=== PATIENT | female | born 1965 | race Two or more races ===

== ENCOUNTER 2018-05-17 20:45 | Inpatient (IN) | payer BC, MEDICARE ==
[~2018-05-17] VITALS: Ht 167.6 cm; Wt 141.1 kg
[2018-05-17] MEDS ORDERED: LORAZEPAM 2MG/ML CPJ IV ONE (21:30)
[2018-05-17 22:08] LABS: CHLORIDE 103 mEq/L (98-107)
[2018-05-17 22:09] LABS: HEMATOCRIT. 32.4 % (36.0-48.0); HEMOGLOBIN. 10.5 g/dL (12.0-16.0); MEAN CORPUSCULAR HEMOGLOBIN 25.1 pg (28.0-32.0); MEAN CORPUSCULAR VOLUME 77.3 fL (81.0-99.0); MEAN PLATELET VOLUME 8.2 fl (7.4-10.4); PLATELET 187 x1000/uL (130-400); RED BLOOD CELL COUNT 4.19 mill/uL (4.2-5.4); RED CELL DISTRIBUTION WIDTH 17.5 % (11.6-14.6)
[2018-05-17] MEDS ORDERED: KETOROLAC 30MG/ML VIAL IV ONE (22:15)
[2018-05-17 22:53] LABS: CLARITY URINE CLEAR (CLEAR); COLOR URINE YELLOW (YELLOW); KETONES URINE NEGATIVE (NEGATIVE); LEUKOCYTE ESTERASE URINE NEGATIVE (NEGATIVE); NITRITE URINE NEGATIVE (NEGATIVE); OCCULT BLOOD URINE 2+ (NEGATIVE); PROTEIN URINE 3+ (NEGATIVE); SPECIFIC GRAVITY URINE 1.026 (1.005-1.030); UROBILINOGEN URINE 0.2 E.U./dL (0.2-1.0)
[2018-05-17] MEDS ORDERED: NITROGLYCERIN OINT 1GM/INCH UDPKT TD ONE (23:00)
[2018-05-17] MEDS ORDERED: AZITHROMYCIN 500 MG in DEXT 5% WATER 250 ML IV ONE (23:00)
[2018-05-17] MEDS ORDERED: FUROSEMIDE 40MG/4ML VIAL IV ONE (23:00)
[2018-05-17] MEDS ORDERED: CEFTRIAXONE 1 G PREMIX 50 ML IV ONE (23:00)
[2018-05-17 23:45] LABS: PLATELET ESTIMATE NORMAL
[2018-05-18] MEDS ORDERED: ONDANSETRON HCL 4MG/2ML INJ IV ONE (00:30)
[2018-05-18] MEDS ORDERED: MORPHINE SULFATE 4 MG/ML CPJ (NOT FOR IM USE) IV ONE (00:30)
[2018-05-18 01:00] VITALS: BP 125/54
[2018-05-18] MEDS ORDERED: LORA2TAB2 MT (01:36)
[2018-05-18] MEDS ORDERED: ALBU18HF2 IH (02:24)
[2018-05-18] MEDS ORDERED: AMLO5TAB88 PO (02:24)
[2018-05-18] MEDS ORDERED: ASPI-1159 PO (02:24)
[2018-05-18] MEDS ORDERED: FERR325T6 PO (02:24)
[2018-05-18] MEDS ORDERED: GLIP10TA10 PO (03:28)
[2018-05-18] MEDS ORDERED: IPRATROPIUM/ALBUTEROL 0.5-3(2.5)MG/3ML NEB INH PRN (03:30)
[2018-05-18] MEDS ORDERED: LEVOFLOXACIN 500MG PREMIX 100 ML IV SCH (03:30)
[2018-05-18] MEDS ORDERED: DEXTROSE 50% WATER 50ML SYRINGE IV PRN (03:45)
[2018-05-18] MEDS: IPRATROPIUM/ALBUTEROL 0.5-3(2.5)MG/3ML NEB HHN SCH ×6 (03:59→23:59)
[2018-05-18] MEDS: ACETAMINOPHEN 325MG TABLET PO PRN ×2 (04:04→09:18)
[2018-05-18] MEDS: SODIUM CHLORIDE 0.9% INJ 3ML FLUSH IVF SCH ×3 (05:29→21:20)
[2018-05-18] MEDS: BLOOD SUGAR DIAGNOSTIC STRIP TEST SCH ×4 (06:35→21:20)
[2018-05-18] MEDS: INSULIN LISPRO 100 UNITS/ML SUBCUT SCH ×4 (06:41→21:22)
[2018-05-18] MEDS: BUDESONIDE 0.5MG/2ML NEB HHN SCH ×2 (08:08→20:15)
[2018-05-18 08:35] VITALS: BP 160/56
[2018-05-18] MEDS: LEVOFLOXACIN 500MG PREMIX 100 ML IV SCH (09:01)
[2018-05-18] MEDS: ASPIRIN 81MG TABLET PO SCH (09:02)
[2018-05-18] MEDS: ENOXAPARIN 40MG/0.4ML SYR SUBCUT SCH ×3 (09:05→21:20)
[2018-05-18] MEDS: AMLODIPINE 5MG TABLET PO SCH (09:12)
[2018-05-18 09:46] LABS: HEMATOCRIT. 27.1 % (36.0-48.0); HEMOGLOBIN. 8.8 g/dL (12.0-16.0); MEAN CORPUSCULAR HEMOGLOBIN 24.9 pg (28.0-32.0); MEAN CORPUSCULAR VOLUME 76.6 fL (81.0-99.0); MEAN PLATELET VOLUME 7.2 fl (7.4-10.4); PLATELET 146 x1000/uL (130-400); RED BLOOD CELL COUNT 3.53 mill/uL (4.2-5.4); RED CELL DISTRIBUTION WIDTH 17.6 % (11.6-14.6)
[2018-05-18] MEDS ORDERED: BUDESONIDE 0.5MG/2ML NEB HHN SCH (11:45)
[2018-05-18] MEDS: AZITHROMYCIN 500 MG TABLET PO SCH (11:50)
[2018-05-18] MEDS: FUROSEMIDE 40MG/4ML VIAL IVP SCH (11:50)
[2018-05-18] MEDS: LORAZEPAM 2MG/ML CPJ IV PRN ×2 (11:51→19:11)
[2018-05-18 12:35] VITALS: BP 101/39
[2018-05-18] MEDS: METHYLPREDNISOLONE SOD SUCC 40 MG/ML VIAL IV SCH ×2 (12:36→21:20)
[2018-05-18 12:46] LABS: BG BASE EXCESS 2.9 mmol/L (-2.0-2.0); BG CARBOXYHEMOGLOBIN 0.9 % (0.5-1.5); BG DEOXYHEMOGLOBIN 8.5 % (0.0-5.0); BG FRACTION INSPIRED OXYGEN 60; BG HCO3 ACT 30.8 mmol/L (22.0-26.0); BG OXYGEN SATURATION 91.4 % (92.0-98.5); BG OXYHEMOGLOBIN 90.6 % (94.0-97.0); BG PCO2 67.7 mmHg (35.0-45.0); BG PH 7.276 (7.350-7.450); BG PO2 62.6 mmHg (75.0-100.0); BG SAMPLE SITE LEFT RADIAL; BG TOTAL HEMOGLOBIN 9.4 g/dL (12.0-18.0); BG VENT MODE MASK - SIMPLE
[2018-05-18] MEDS: MORPHINE SULFATE 4 MG/ML CPJ (NOT FOR IM USE) IV PRN ×3 (13:45→22:04)
[2018-05-18] MEDS ORDERED: LIDOCAINE HCL/PF 1% 2ML VIAL ONE (16:34)
[2018-05-18 16:50] LABS: PLATELET ESTIMATE NORMAL
[2018-05-18 16:53] VITALS: BP 136/55
[2018-05-18 20:34] VITALS: BP 111/49
[2018-05-18] MEDS ORDERED: CEFTRIAXONE 1 G PREMIX 50 ML IV SCH (23:30)
[2018-05-19] VITALS: BP 106/48
[2018-05-19] MEDS: ACETAMINOPHEN 325MG TABLET PO PRN (00:53)
[2018-05-19] MEDS: LORAZEPAM 2MG/ML CPJ IV PRN ×4 (01:31→22:44)
[2018-05-19 04:00] VITALS: BP 123/69
[2018-05-19] MEDS: IPRATROPIUM/ALBUTEROL 0.5-3(2.5)MG/3ML NEB HHN SCH ×5 (04:17→21:57)
[2018-05-19] MEDS: MORPHINE SULFATE 4 MG/ML CPJ (NOT FOR IM USE) IV PRN ×4 (04:45→20:31)
[2018-05-19] MEDS: SODIUM CHLORIDE 0.9% INJ 3ML FLUSH IVF SCH ×3 (05:34→20:48)
[2018-05-19] MEDS: METHYLPREDNISOLONE SOD SUCC 40 MG/ML VIAL IV SCH ×2 (05:34→12:11)
[2018-05-19] MEDS: DIPHENHYDRAMINE 50MG/ML VIAL IV PRN ×2 (05:35→12:11)
[2018-05-19] MEDS: BLOOD SUGAR DIAGNOSTIC STRIP TEST SCH ×4 (06:04→20:48)
[2018-05-19 06:26] LABS: HEMATOCRIT 25.8 % (36.0-48.0); HEMOGLOBIN 8.4 g/dL (12.0-16.0); MEAN CORPUSCULAR VOLUME 77.3 fL (81.0-99.0); PLATELET 146 x1000/uL (130-400); RED BLOOD CELL COUNT 3.34 mill/uL (4.2-5.4); RED CELL DISTRIBUTION WIDTH 17.5 % (11.6-14.6)
[2018-05-19 07:00] LABS: BG BASE EXCESS -0.4 mmol/L (-2.0-2.0); BG CARBOXYHEMOGLOBIN 0.8 % (0.5-1.5); BG DEOXYHEMOGLOBIN 23.8 % (0.0-5.0); BG HCO3 ACT 27.5 mmol/L (22.0-26.0); BG METHEMOGLOBIN 0.3 % (0.0-1.5); BG OXYGEN SATURATION 75.9 % (92.0-98.5); BG OXYHEMOGLOBIN 75.1 % (94.0-97.0); BG PCO2 64.3 mmHg (35.0-45.0); BG PH 7.249 (7.350-7.450); BG PO2 42.1 mmHg (75.0-100.0); BG SAMPLE SITE RIGHT RADIAL; BG TOTAL HEMOGLOBIN 9.2 g/dL (12.0-18.0); BG VENT MODE ROOM AIR
[2018-05-19] MEDS ORDERED: INSULIN REGULAR (HUMULIN R) UD 100 UNITS/ML SYR SUBCUT NR (07:00)
[2018-05-19] MEDS ORDERED: INSULIN LISPRO 100 UNITS/ML SUBCUT NR ×2 (07:00→21:00)
[2018-05-19] MEDS: BUDESONIDE 0.5MG/2ML NEB HHN SCH ×2 (07:59→21:56)
[2018-05-19] MEDS: LEVOFLOXACIN 500MG PREMIX 100 ML IV SCH (08:59)
[2018-05-19] MEDS: AZITHROMYCIN 500 MG TABLET PO SCH (09:00)
[2018-05-19] MEDS: FUROSEMIDE 40MG/4ML VIAL IVP SCH (09:00)
[2018-05-19] MEDS: ASPIRIN 81MG TABLET PO SCH (09:00)
[2018-05-19] MEDS: INSULIN LISPRO 100 UNITS/ML SUBCUT SCH ×4 (09:53→21:00)
[2018-05-19] MEDS ORDERED: INSULIN GLARGINE UD 100 UNITS/ML SYR SUBCUT NR (11:00)
[2018-05-19] MEDS: AMLODIPINE 5MG TABLET PO SCH (13:14)
[2018-05-19] MEDS ORDERED: LIDOCAINE HCL/PF 1% 2ML VIAL ONE (13:59)
[2018-05-19 16:00] VITALS: BP 121/42
[2018-05-19 20:22] VITALS: BP 133/53
[2018-05-19] MEDS ORDERED: INSULIN GLARGINE UD 100 UNITS/ML SYR SUBCUT SCH (22:00)
[2018-05-20] MEDS: DIPHENHYDRAMINE 50MG/ML VIAL IV PRN ×3 (00:06→21:28)
[2018-05-20] MEDS: METHYLPREDNISOLONE SOD SUCC 40 MG/ML VIAL IV SCH ×2 (00:06→13:07)
[2018-05-20] MEDS: IPRATROPIUM/ALBUTEROL 0.5-3(2.5)MG/3ML NEB HHN SCH ×4 (00:18→22:10)
[2018-05-20 00:36] VITALS: BP 130/50
[2018-05-20 04:00] VITALS: BP 132/78
[2018-05-20] MEDS: MORPHINE SULFATE 4 MG/ML CPJ (NOT FOR IM USE) IV PRN ×4 (04:16→20:16)
[2018-05-20] MEDS: BLOOD SUGAR DIAGNOSTIC STRIP TEST SCH ×4 (06:02→20:15)
[2018-05-20] MEDS: SODIUM CHLORIDE 0.9% INJ 3ML FLUSH IVF SCH ×3 (06:02→21:27)
[2018-05-20] MEDS ORDERED: INSULIN LISPRO 100 UNITS/ML SUBCUT ONE (06:30)
[2018-05-20 06:51] LABS: HEMOGLOBIN 8.4 g/dL (12.0-16.0); MEAN CORPUSCULAR HEMOGLOBIN 24.8 pg (28.0-32.0); MEAN CORPUSCULAR VOLUME 77.2 fL (81.0-99.0); PLATELET 189 x1000/uL (130-400); RED BLOOD CELL COUNT 3.37 mill/uL (4.2-5.4); RED CELL DISTRIBUTION WIDTH 17.5 % (11.6-14.6)
[2018-05-20] MEDS: BUDESONIDE 0.5MG/2ML NEB HHN SCH ×2 (07:50→22:06)
[2018-05-20] MEDS: LEVOFLOXACIN 500MG PREMIX 100 ML IV SCH (09:30)
[2018-05-20] MEDS: AZITHROMYCIN 500 MG TABLET PO SCH (09:30)
[2018-05-20] MEDS: AMLODIPINE 5MG TABLET PO SCH (09:30)
[2018-05-20] MEDS ORDERED: LIDOCAINE HCL/PF 1% 2ML VIAL ONE (09:57)
[2018-05-20] MEDS ORDERED: INSULIN GLARGINE UD 100 UNITS/ML SYR SUBCUT SCH ×2 (10:00→22:00)
[2018-05-20] MEDS: FUROSEMIDE 40MG/4ML VIAL IVP SCH (10:22)
[2018-05-20] MEDS: INSULIN GLARGINE UD 100 UNITS/ML SYR SUBCUT SCH ×2 (10:37→21:27)
[2018-05-20 12:00] VITALS: BP 158/56
[2018-05-20 12:35] LABS: BG BASE EXCESS 2.3 mmol/L (-2.0-2.0); BG CARBOXYHEMOGLOBIN 0.3 % (0.5-1.5); BG DEOXYHEMOGLOBIN 4.5 % (0.0-5.0); BG FRACTION INSPIRED OXYGEN 40; BG HCO3 ACT 28.8 mmol/L (22.0-26.0); BG METHEMOGLOBIN 1.3 % (0.0-1.5); BG OXYGEN SATURATION 95.4 % (92.0-98.5); BG OXYHEMOGLOBIN 93.9 % (94.0-97.0); BG PCO2 55.3 mmHg (35.0-45.0); BG PH 7.335 (7.350-7.450); BG PO2 83.8 mmHg (75.0-100.0); BG SAMPLE SITE RIGHT RADIAL; BG TOTAL HEMOGLOBIN 9.8 g/dL (12.0-18.0); BG VENT MODE NASAL CANNULA
[2018-05-20] MEDS: INSULIN LISPRO 100 UNITS/ML SUBCUT SCH ×3 (13:08→21:27)
[2018-05-20] MEDS ORDERED: INSULIN LISPRO 100 UNITS/ML SUBCUT NR ×2 (14:30→17:00)
[2018-05-20 16:00] VITALS: BP 172/61
[2018-05-20 16:34] VITALS: BP 146/59
[2018-05-20] MEDS: LORAZEPAM 2MG/ML CPJ IV PRN (17:14)
[2018-05-20] MEDS ORDERED: INSULIN GLARGINE UD 100 UNITS/ML SYR SUBCUT NR (18:30)
[2018-05-20 20:00] VITALS: BP 168/76
[2018-05-20] MEDS: ENOXAPARIN 40MG/0.4ML SYR SUBCUT SCH (21:25)
[2018-05-21] VITALS: BP 135/58
[2018-05-21] MEDS: MORPHINE SULFATE 4 MG/ML CPJ (NOT FOR IM USE) IV PRN ×4 (00:20→18:38)
[2018-05-21 04:00] VITALS: BP 151/62
[2018-05-21] MEDS: LORAZEPAM 2MG/ML CPJ IV PRN ×3 (04:08→17:43)
[2018-05-21] MEDS: IPRATROPIUM/ALBUTEROL 0.5-3(2.5)MG/3ML NEB HHN SCH ×4 (05:16→16:05)
[2018-05-21] MEDS: SODIUM CHLORIDE 0.9% INJ 3ML FLUSH IVF SCH ×2 (06:13→14:27)
[2018-05-21] MEDS: BLOOD SUGAR DIAGNOSTIC STRIP TEST SCH ×3 (06:24→17:29)
[2018-05-21] MEDS: DIPHENHYDRAMINE 50MG/ML VIAL IV PRN ×2 (06:39→15:26)
[2018-05-21 06:58] LABS: HEMATOCRIT 27.2 % (36.0-48.0); HEMOGLOBIN 8.7 g/dL (12.0-16.0); MEAN CORPUSCULAR HEMOGLOBIN 24.4 pg (28.0-32.0); MEAN CORPUSCULAR VOLUME 75.8 fL (81.0-99.0); PLATELET 222 x1000/uL (130-400); RED BLOOD CELL COUNT 3.58 mill/uL (4.2-5.4); RED CELL DISTRIBUTION WIDTH 17.5 % (11.6-14.6)
[2018-05-21 08:00] VITALS: BP 150/62
[2018-05-21] MEDS: BUDESONIDE 0.5MG/2ML NEB HHN SCH (08:49)
[2018-05-21] MEDS ORDERED: ASPIRIN 81MG TABLET PO SCH (09:00)
[2018-05-21] MEDS ORDERED: METHYLPREDNISOLONE SOD SUCC 40 MG/ML VIAL IV SCH (09:00)
[2018-05-21] MEDS: FUROSEMIDE 40MG/4ML VIAL IVP SCH (09:10)
[2018-05-21] MEDS: LEVOFLOXACIN 500MG PREMIX 100 ML IV SCH (09:11)
[2018-05-21] MEDS: ENOXAPARIN 40MG/0.4ML SYR SUBCUT SCH (09:11)
[2018-05-21] MEDS: AMLODIPINE 5MG TABLET PO SCH (09:12)
[2018-05-21 12:00] VITALS: BP 161/76
[2018-05-21] MEDS: INSULIN LISPRO 100 UNITS/ML SUBCUT SCH ×2 (12:50→17:50)
[2018-05-21] MEDS ORDERED: INSULIN LISPRO 100 UNITS/ML SUBCUT ONE (13:45)
[2018-05-21 16:00] VITALS: BP 147/67
[2018-05-21] MEDS ORDERED: INSULIN LISPRO 100 UNITS/ML SUBCUT NR (17:30)
[2018-05-21 19:00] VITALS: BP 147/67
[2018-05-21] MEDS ORDERED: INSULIN GLARGINE UD 100 UNITS/ML SYR SUBCUT SCH (22:00)
== END 2018-05-21 19:55 | disposition home or self-care (01) | DRG 133 ==
LOC: ER 20:45 → 6WST 23:55 → EDBEDREQTM 23:58 → EDBEDREQ 23:58 → ENRESERV 05-18 00:08 → 6WST 05-18 01:47
PROVIDERS: ADMIT Internal Medicine; ATTEND Internal Medicine
PROC: 5A09357 Assistance with Respiratory Ventilation, Less than 24 Consecutive Hours, Continuous Positive Airway Pressure (ICD-10-PCS; principal; 2018-05-19)
PROC: 5A09357 Assistance with Respiratory Ventilation, Less than 24 Consecutive Hours, Continuous Positive Airway Pressure (ICD-10-PCS; 2018-05-20)
DX: J96.02 Acute respiratory failure with hypercapnia (principal); I50.33 Acute on chronic diastolic (congestive) heart failure; E44.0 Moderate protein-calorie malnutrition; E87.2 Acidosis; I27.20 Pulmonary hypertension, unspecified; E66.2 Morbid (severe) obesity with alveolar hypoventilation; E11.65 Type 2 diabetes mellitus with hyperglycemia; I11.0 Hypertensive heart disease with heart failure; J44.1 Chronic obstructive pulmonary disease with (acute) exacerbation; D64.9 Anemia, unspecified; E78.5 Hyperlipidemia, unspecified; E87.70 Fluid overload, unspecified; F40.240 Claustrophobia; G89.29 Other chronic pain; T38.0X5A Adverse effect of glucocorticoids and synthetic analogues, initial encounter; M54.5 Low back pain; Z79.899 Other long term (current) drug therapy; Z91.19 Patient's noncompliance with other medical treatment and regimen
CPT/HCPCS: 36415; 36600; 71045; 76604; 80048; 82375; 82805; 82962; 83036; 83605; 83880; 84484; 85027; 93005; 93306; 94640; 97162; 99285; J0456; J0696; J1200; J1650; J1815; J1885; J1940; J1956; J2060; J2270; J2405; J2920; J3490; J7050; J7060; J7620; J7626